=== PATIENT | male | born 1975 | race Caucasian/White ===

== ENCOUNTER 2025-07-06 12:02 | Emergency (ER) | payer MEDICARE, MEDICAID ==
[~2025-07-06] VITALS: Ht 177.8 cm; Wt 108.0 kg
[2025-07-06 12:13] VITALS: TEMP 98.2
[2025-07-06 13:09] LABS: APPEARANCE,URINE HAZY (CLEAR); GLUCOSE, URINE (UA) NEGATIVE (NEGATIVE); LEUKOCYTE ESTERASE ,URINE MODERATE (NEGATIVE); NITRATE,URINE NEGATIVE (NEGATIVE); OCCULT BLOOD,URINE LARGE (NEGATIVE); SPECIFIC GRAVITIY, URINE 1.021 (1.003-1.030)
[2025-07-06 13:21] LABS: SULFOSALICYLIC ACID,URINE 2+ (Negative)
[2025-07-06 13:49] LABS: PLATELET COUNT (AUTO) 212 K/uL (150-450); RED BLOOD CELL COUNT(AUTO) 4.48 MIL/uL (4.50-5.90); RED CELL DISTRIBUTION WIDTH 12.7 % (11.5-14.5); WHITE BLOOD COUNT (AUTO) 6.7 K/uL (4.5-11.0)
[2025-07-06 13:52] LABS: CALCIUM, TOTAL 8.9 mg/dL (8.8-10.5); CREATININE 1.37 mg/dL (0.60-1.30); GLOMERULAR FILTR. RATE CALC 55.0 mL/min (>60); GLUCOSE,RANDOM 93.0 mg/dL (70-110); SODIUM SERUM 135.0 mmol/L (136-145); UREA NITROGEN, BLOOD 20.0 mg/dL (7-18)
[2025-07-06] MEDS ORDERED: PHEN-674 PO (13:54)
[2025-07-06] MEDS ORDERED: SULF1TAB94 PO (13:54)
[2025-07-06] MEDS ORDERED: CEPH-558 PO (13:54)
[2025-07-06] MEDS ORDERED: IBUP-1554 PO (13:54)
[2025-07-06] MEDS ORDERED: ONDA-104 PO (13:54)
[2025-07-06] MEDS: PHENAZOPYRIDINE HCL 100 MG TABLET PO ONE (14:07)
[2025-07-06] MEDS: ONDANSETRON 4 MG TABLET PO ONE (14:07)
[2025-07-06] MEDS: LIDOCAINE/PF 1% 2 ML VIAL IM ONE (14:09)
[2025-07-06] MEDS: CefTRIAXone SODIUM 1 GM/VIAL IM ONE (14:09)
[2025-07-06 15:20] VITALS: BP 118/77; PULSE 74; RESP 18; O2SAT 99
== END 2025-07-06 15:22 | disposition home or self-care (01) ==
LOC: EMS 12:02
DX: N30.91 Cystitis, unspecified with hematuria (principal); N20.0 Calculus of kidney
CPT/HCPCS: 80048; 81001; 85025; 87077 ×2; 87086; 36415; 74176; 99285; 96372; J0696; J3490; Q0162; 81002